=== PATIENT | female | born 2000 | race Hispanic/Latino ===

== ENCOUNTER 2023-09-18 18:13 | Inpatient (IN) | payer MEDICAID, OTHER, SELFPAY ==
[2023-09-18 18:58] VITALS: BMI 31.2
[2023-09-18] MEDS: Lactated Ringer's 1,000 ML IV SCH (19:00)
[2023-09-18] MEDS ORDERED: Butorphanol Tartrate 1 MG/ML VIAL SLOW IVP PRN (19:18)
[2023-09-18] MEDS ORDERED: Promethazine HCl 25 MG/ML VIAL IM PRN ×2 (19:18→20:12)
[2023-09-18] MEDS ORDERED: fentaNYL 50 mcg/mL 1 mL Vial SLOW IVP PRN (19:18)
[2023-09-18] MEDS ORDERED: Acetaminophen 500 MG TAB PO PRN (19:18)
[2023-09-18] MEDS ORDERED: Misoprostol 200 MCG TAB PR PRN (19:18)
[2023-09-18] MEDS ORDERED: Carboprost 250 MCG/ML AMP IM PRN (19:18)
[2023-09-18] MEDS ORDERED: Ibuprofen 800 MG TAB PO PRN (19:18)
[2023-09-18] MEDS ORDERED: hydrALAZINE 20 MG/ML VIAL SLOW IVP PRN (19:18)
[2023-09-18] MEDS ORDERED: Tranexamic Acid 1,000 MG/10 ML VIAL IVP PRN (19:18)
[2023-09-18] MEDS ORDERED: Lidocaine 1% (PF) 30 ML VIAL SC PRN (19:18)
[2023-09-18] MEDS ORDERED: Methylergonovine 0.2 MG/ML VIAL IM PRN (19:18)
[2023-09-18] MEDS ORDERED: Diphenoxylate HCl/Atropine Tablet PO PRN (19:18)
[2023-09-18] MEDS ORDERED: Ondansetron PF 4 MG/2 ML Vial IVP PRN ×2 (19:18→20:12)
[2023-09-18] MEDS ORDERED: Oxytocin 30 units/NS 500 ML 500 ML IV SCH ×3 (19:30)
[2023-09-18 19:37] LABS: Hematocrit 36.4 % (34.9-44.5); Hemoglobin 12.6 g/dL (12.0-15.5); Mean Corpuscular HGB CONC 34.6 g/dL (32.0-36.0); Mean Corpuscular Hemoglobin 31.2 pg (27.0-33.0); Mean Corpuscular Volume 90.1 fL (81.6-98.3); Mean Platelet Volume 10.9 fL (7.4-10.4); Platelet Count 266 10x3/uL (150-450); Red Blood Cell (RBC) Count 4.04 10x6/uL (3.90-5.03); White Blood Cell (WBC) Count 9.1 10x3/uL (3.5-10.5)
[2023-09-18] MEDS: fentaNYL/Ropivacaine Epidural 100 ML ONE (19:53)
[2023-09-18] MEDS ORDERED: Moisturizing Cream (Eucerin) 113 GM JAR TOP PRN (20:12)
[2023-09-18] MEDS ORDERED: Lactated Ringer's 500 ML IV PRN (20:12)
[2023-09-18] MEDS ORDERED: diphenhydrAMINE 50 MG/ML VIAL IVP PRN (20:12)
[2023-09-18] MEDS ORDERED: Acetaminophen 325 MG TAB PO PRN (20:12)
[2023-09-18] MEDS ORDERED: ePHEDrine Sulfate 50 MG/10 ML VIAL SLOW IVP PRN (20:12)
[2023-09-18] MEDS ORDERED: Naloxone HCl 0.4 mg/ml Vial IVP PRN ×2 (20:12)
[2023-09-18] MEDS ORDERED: fentaNYL 2 mcg/Ropivacaine 0.2% Epidural 100 ML CADD EPIDURAL SCH (20:15)
[2023-09-18] MEDS ORDERED: Communication Order-Pharmacy FS SCH (20:15)
[2023-09-18 20:47] LABS: Glucose 77 mg/dL (70-105)
[2023-09-18 20:58] LABS: Syphilis Antibody Nonreactive (Nonreactive); Syphilis Antibody Index 0.07 S/CO (<1.00 Non-Reactive)
[2023-09-18 20:59] LABS: HBsAg Index 0.17 S/CO (0-0.99); Hep B Surf Ag - L&D Non-Reactive S/CO (NonReactive)
[2023-09-19] MEDS ORDERED: hydrALAZINE 20 MG/ML VIAL SLOW IVP PRN (02:37)
[2023-09-19] MEDS ORDERED: Preparation H Ointment 28 GM TUBE PR PRN (02:37)
[2023-09-19] MEDS ORDERED: Bisacodyl 10 MG SUPP PR PRN (02:37)
[2023-09-19] MEDS ORDERED: diphenhydrAMINE 25 MG CAP PO PRN (02:37)
[2023-09-19] MEDS ORDERED: Milk Of Magnesia 30 ML UDCUP PO PRN (02:37)
[2023-09-19] MEDS ORDERED: Benzocaine-Menthol 82.5 ML CAN TOP PRN (02:37)
[2023-09-19] MEDS ORDERED: Lanolin Ointment 7 GM TUBE TOP PRN (02:37)
[2023-09-19] MEDS: Ibuprofen 800 MG TAB PO SCH (05:49)
[2023-09-19] MEDS: Ferrous Sulfate 325 MG TAB PO SCH (07:14)
[2023-09-19] MEDS: Boostrix 0.5 ML (Tdap) VIAL (>/=7 yrs of age) IM ONE (07:14)
[2023-09-19] MEDS: Prenatal Vitamin 1 TAB PO SCH (08:50)
[2023-09-19] MEDS: Docusate 100 MG CAP PO SCH (08:50)
[2023-09-20 01:13] VITALS: BP 117/57; TEMP 97.6
== END 2023-09-20 16:20 | disposition home or self-care (01) | DRG 807 ==
LOC: CSHLD/OP 18:13 → CSHLD 19:16 → CSHPED 09-19 03:16
PROVIDERS: ADMIT Family Medicine; ATTEND Family Medicine
PROC: 10E0XZZ Delivery of Products of Conception, External Approach (ICD-10-PCS; principal; 2023-09-18)
DX: O48.0 Post-term pregnancy (principal); Z37.0 Single live birth; Z3A.40 40 weeks gestation of pregnancy
CPT/HCPCS: 36415; 82947; 85027; 86780; 86850; 86900; 86901; 87340; J7120